=== PATIENT | male | born 1955 | race Caucasian/White ===

== ENCOUNTER → 2017-12-23 | Outpatient (CLI) | payer OTHER | END | disposition home or self-care (01) | LOC: NUC 09:51 | DX: R93.7 Abnormal findings on diagnostic imaging of other parts of musculoskeletal system (principal); M19.032 Primary osteoarthritis, left wrist; M19.031 Primary osteoarthritis, right wrist; M19.042 Primary osteoarthritis, left hand; M19.041 Primary osteoarthritis, right hand; Z96.612 Presence of left artificial shoulder joint | CPT/HCPCS: 78315; A9503 ==